=== PATIENT | male | born 1960 | race Caucasian/White ===

== ENCOUNTER 2016-05-23 13:34 | Observation (INO) | payer BC, OTHER ==
--- NOTE | 2016-05-23 14:04 | EKG REPORT ---
SEVERITY:- BORDERLINE ECG - SINUS RHYTHM NONSPECIFIC LATERAL T INVERSION. : Confirmed by: Juan Francisco Herr MD 23-May-2016 14:04:17
--- NOTE | 2016-05-23 14:35 | ER Document Report ---
ED Medical Screen (RME) - General Stated Complaint: CHEST PAIN Mode of Arrival: Ambulatory Information source: Patient, Relative - spouse Notes: She presents emergency department with complaints of left-sided chest hurting reports the pain comes and goes feels like a cramp. Reports has been coming and going since last week. Reports history of high blood pressure and he is a smoker. Patient reports father with history of congestive heart failure which he at the age of 59. He denies other symptoms such as fever vomiting nausea diarrhea. He denies the pain radiating anywhere. Patient reports this happened 2 years ago and he never followed up with cardiology Physical Exam - Vital signs Vitals: Temp Pulse Resp BP Pulse Ox 98.0 F 95 17 173/87 H 96 05/23/16 13:51 05/23/16 13:51 05/23/16 13:51 05/23/16 13:51 05/23/16 13:51 Course - Vital Signs Vital signs: Temp Pulse Resp BP Pulse Ox 98.0 F 95 17 173/87 H 96 05/23/16 13:51 05/23/16 13:51 05/23/16 13:51 05/23/16 13:51 05/23/16 13:51
[2016-05-23] MEDS ORDERED: ASPIRIN 81 MG TABLET, CHEWABLE PO ONE ×2 (14:36→16:55)
[2016-05-23 14:56] LABS: ABSOLUTE EOSINOPHILS # (AUTO) 0.2 10^3/uL (0.0-0.6); ABSOLUTE LYMPHOCYTES (AUTO) 2.1 10^3/uL (0.5-4.7); ABSOLUTE MONOCYTES (AUTO) 0.6 10^3/uL (0.1-1.4); ABSOLUTE NEUT (AUTO) 4.5 10^3/uL (1.7-8.2); BASOPHILS % (AUTO) 0.7 % (0-2); EOSINOPHILS % (AUTO) 2.1 % (0-6); HEMATOCRIT 43.5 % (37.9-51.0); HEMOGLOBIN 15.4 g/dL (13.5-17.0); HGB HCT DIFFERENCE 2.7; LYMPHOCYTES % (AUTO) 28.2 % (13-45); MEAN CORPUSCULAR HEMOGLOBIN 32.6 pg (27.0-33.4); MEAN CORPUSCULAR HGB CONC 35.3 g/dL (32.0-36.0); MEAN CORPUSCULAR VOLUME 92 fl (80-97); MONOCYTES % (AUTO) 7.9 % (3-13); RED BLOOD COUNT 4.71 10^6/uL (4.35-5.55); RED CELL DISTRIBUTION WIDTH 13.8 % (11.5-14.0); SEGMENTED NEUTROPHILS % (AUTO) 61.1 % (42-78); WHITE BLOOD COUNT 7.3 10^3/uL (4.0-10.5)
[2016-05-23 15:02] LABS: PROTHROMBIN TIME 12.4 SEC (11.4-15.4)
--- NOTE | 2016-05-23 15:24 | ER Document Report ---
ED General - General Chief Complaint: Chest Pain Stated Complaint: CHEST PAIN Time seen by provider: 15:20 Mode of Arrival: Ambulatory Information source: Patient Notes: 56-year-old male complains about left lower chest upper adult cramping which began after he turned to one side while walking about 11:00 this morning. He reports it lasted 6 minutes and then resolved. He reports no associated fever, chills, nausea, vomiting, or shortness of breath. He had no sensation of pain numbness weakness to extremities. He reports lower chest cramping was nonradiating. He reports he's had cramping sensation like this in the right lower abdomen in the past with turning to one side and had the impression that this was similar. Patient reports he had a different type of chest discomfort about 2 years ago and says it EKG that looked okay and relief of his discomfort with nitroglycerin but never had any other cardiac workup. He is asymptomatic now. He has no local physician Physical Exam: General: Alert, appears well. HEENT: Normocephalic. Atraumatic. PERRLA. Extraocular movements intact. Oropharynx clear. Neck: Supple. Non-tender. Respiratory: No respiratory distress. Clear and equal breath sounds bilaterally. Nontender to palpation Cardiovascular: Regular rate and rhythm. PMI not displaced Abdominal: Normal Inspection. Soft, non-tender. No distension. Normal Bowel Sounds. Back: Non-tender. No deformity or step off. 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 Normal Mood. Skin: Warm. Dry. Normal color. - Related Data Allergies/Adverse Reactions: No Known Allergies Allergy (Verified 05/23/16 15:29) Past Medical History - General Information source: Patient, Relative - spouse - Social History Smoking Status: Current Every Day Smoker Family History: Other - Father with congestive heart failure - Past Medical History Cardiac Medical History: Reports: Hx Hypertension Denies: Hx Congestive Heart Failure, Hx Coronary Artery Disease, Hx Heart Attack, Hx Peripheral Vascular Disease Neurological Medical History: Denies: Hx Cerebrovascular Accident Endocrine Medical History: Denies: Hx Diabetes Mellitus Type 1, Hx Diabetes Mellitus Type 2 Malignancy Medical History: Reports None GI Medical History: Reports: None Musculoskeltal Medical History: Reports None Psychiatric Medical History: Reports: None Review of Systems - Review of Systems Constitutional: denies: Chills, Fever EENT: denies: Ear pain, Throat pain Cardiovascular: See HPI. denies: Dyspnea, Syncope Respiratory: denies: Short of breath, Wheezing Gastrointestinal: denies: Abdominal pain, Diarrhea, Nausea, Vomiting, Blood in vomit, Black stools, Rectal bleeding Genitourinary: denies: Burning, Dysuria Musculoskeletal: denies: Back pain, Leg swelling, Ankle swelling Skin: denies: Rash Hematologic/Lymphatic: denies: Swollen glands Neurological/Psychological: denies: Weakness, Numbness Physical Exam - Vital signs Vitals: Temp Pulse Resp BP Pulse Ox 98.0 F 95 17 173/87 H 96 05/23/16 13:51 05/23/16 13:51 05/23/16 13:51 05/23/16 13:51 05/23/16 13:51 Course - Re-evaluation Re-evalutation: 05/23/16 17:15 Patient is remained asymptomatic during stay in emergency department. He has multiple risk factors for acute coronary syndrome and heart score for I believe the prudent admitted for repeat cardiac enzymes and stress testing in a. I discussed case with Dr. Robles hospitalist service and she will be coming to see the patient - Vital Signs Vital signs: Temp Pulse Resp BP Pulse Ox 98.0 F 95 15 173/87 H 94 05/23/16 13:51 05/23/16 13:51 05/23/16 15:26 05/23/16 13:51 05/23/16 15:26 - Laboratory Result Diagrams: 05/23/16 14:45 05/23/16 14:45 Laboratory results interpreted by me: 05/23/16 14:45 Calcium 10.5 H ALT 74 H - Diagnostic Test Radiology reviewed: Image reviewed, Reports reviewed - EKG Interpretation by Me Additional EKG results interpreted by me: 05/23/16 15:24 EKG reviewed by myself shows sinus rhythm at 92 changes Discharge - Discharge Clinical Impression: Chest pain Qualifiers: Chest pain type: unspecified Qualified Code(s): R07.9 - Chest pain, unspecified Hypertension Qualifiers: Hypertension type: essential hypertension Qualified Code(s): I10 - Essential ( primary) hypertension Condition: Fair Disposition: ADMITTED OBSERVATION Admitting Provider: Hospitalist Unit Admitted: Telemetry
[2016-05-23 15:32] LABS: ALANINE AMINOTRANSFERASE 74 U/L (21-72); ALBUMIN 4.7 g/dL (3.5-5.0); ALKALINE PHOSPHATASE 89 U/L (38-126); ANION GAP 10 (5-19); ASPARTATE AMINO TRANSFERASE 40 U/L (17-59); BILIRUBIN,DIRECT 0.2 mg/dL (0.0-0.4); BILIRUBIN,TOTAL 0.4 mg/dL (0.2-1.3); BLOOD UREA NITROGEN 13 mg/dL (7-20); CALCIUM 10.5 mg/dL (8.4-10.2); CARBON DIOXIDE 30 mmol/L (22-30); CHLORIDE 102 mmol/L (98-107); CREATINE KINASE 103 U/L (55-170); CREATININE RESULT 0.76 mg/dL (0.52-1.25); GLUCOSE 108 mg/dL (75-110); MAGNESIUM 1.8 mg/dL (1.6-2.3); POTASSIUM 4.2 mmol/L (3.6-5.0); SODIUM 142.3 mmol/L (137-145); TOTAL PROTEIN 7.6 g/dL (6.3-8.2)
[2016-05-23 15:44] LABS: CREATINE KINASE MB 1.33 ng/mL (<4.55)
[2016-05-23 15:51] LABS: TROPONIN I < 0.012 ng/mL
--- NOTE | 2016-05-23 18:11 | PDOC H&P ---
History of Present Illness Admission Date/PCP: 05/23/16 17:22 Patient complains of: chest pain History of Present Illness: STANLEY MORAN is a 56 year old male about left lower chest upper adult cramping which began after he turned to one side while walking about 11:00 this morning. He reports it lasted 6 minutes and then resolved. He reports no associated fever, chills, nausea, vomiting, or shortness of breath. He had no sensation of pain numbness weakness to extremities. He reports lower chest cramping was nonradiating. He reports he' s had cramping sensation like this in the right lower abdomen in the past with turning to one side and had the impression that this was similar. Patient reports he had a different type of chest discomfort about 2 years ago and says it EKG that looked okay and relief of his discomfort with nitroglycerin but never had any other cardiac workup. He is asymptomatic now. He has no local physician In the ED patient had normal EKG, normal cardiac enzymes A CTA of the chest was negative for PE He was subsequently increased subsequently admitted for observation overnight under hospitalist service to be ruled out Past Medical History Cardiac Medical History: Reports: Hyperlipidema, Hypertension Denies: Congestive Heart Failure, Coronary Artery Disease, Myocardial Infarction, Peripheral Vascular Disease Endocrine Medical History: Denies: Diabetes Mellitus Type 1, Diabetes Mellitus Type 2 Malignancy Medical History: Reports: None GI Medical History: Reports: None Musculoskeltal Medical History: Reports: None Psychiatric Medical History: Reports: None Past Surgical History Past Surgical History: Reports: Orthopedic Surgery - Jaw Social History Smoking Status: Current Every Day Smoker Cigarettes Packs Per Day: 15 Frequency of Alcohol Use: None Hx Recreational Drug Use: No - Advance Directive Resuscitation Status: Full Code Family History Family History: Other - Father with congestive heart failure Parental Family History Reviewed: Yes - father had CHF Children Family History Reviewed: Yes Sibling(s) Family History Reviewed.: Yes Medication/Allergy Allergies/Adverse Reactions: No Known Allergies Allergy (Verified 05/23/16 15:29) Review of Systems Constitutional: ABSENT: chills, fever(s), headache(s), weight gain, weight loss Eyes: ABSENT: visual disturbances Ears: ABSENT: hearing changes Cardiovascular: PRESENT: as per HPI, chest pain. ABSENT: dyspnea on exertion, edema, orthropnea, palpitations Respiratory: ABSENT: cough, hemoptysis Gastrointestinal: ABSENT: abdominal pain, constipation, diarrhea, hematemesis, hematochezia, nausea, vomiting Genitourinary: ABSENT: dysuria, hematuria Musculoskeletal: ABSENT: joint swelling Integumentary: ABSENT: rash, wounds Neurological: ABSENT: abnormal gait, abnormal speech, confusion, dizziness, focal weakness, syncope Psychiatric: ABSENT: anxiety, depression, homidical ideation, suicidal ideation Endocrine: ABSENT: cold intolerance, heat intolerance, polydipsia, polyuria Hematologic/Lymphatic: ABSENT: easy bleeding, easy bruising Physical Exam Vital Signs: Temp Pulse Resp BP Pulse Ox 98.0 F 95 15 168/90 H 96 05/23/16 13:51 05/23/16 13:51 05/23/16 17:01 05/23/16 17:01 05/23/16 17:01 General appearance: PRESENT: no acute distress, well-developed, well-nourished Head exam: PRESENT: atraumatic, normocephalic Eye exam: PRESENT: conjunctiva pink, EOMI, PERRLA. ABSENT: scleral icterus Ear exam: PRESENT: normal external ear exam Mouth exam: PRESENT: moist, tongue midline Neck exam: ABSENT: carotid bruit, JVD, lymphadenopathy, thyromegaly Respiratory exam: PRESENT: clear to auscultation [place]. ABSENT: rales, rhonchi, wheezes Cardiovascular exam: PRESENT: RRR. ABSENT: diastolic murmur, rubs, systolic murmur Pulses: PRESENT: normal dorsalis pedis pul Vascular exam: PRESENT: normal capillary refill GI/Abdominal exam: PRESENT: normal bowel sounds, soft. ABSENT: distended, guarding, mass, organolmegaly, rebound, tenderness Rectal exam: PRESENT: deferred Extremities exam: PRESENT: full ROM. ABSENT: calf tenderness, clubbing, pedal edema Neurological exam: PRESENT: alert, awake, oriented to person, oriented to place , oriented to time, oriented to situation, CN II-XII grossly intact. ABSENT: motor sensory deficit Psychiatric exam: PRESENT: appropriate affect, normal mood. ABSENT: homicidal ideation, suicidal ideation Skin exam: PRESENT: dry, intact, warm. ABSENT: cyanosis, rash Results Laboratory Results: 05/23/16 14:45 05/23/16 14:45 MCV 92 fl (80-97) 05/23/16 14:45 MCH 32.6 pg (27.0-33.4) 05/23/16 14:45 MCHC 35.3 g/dL (32.0-36.0) 05/23/16 14:45 RDW 13.8 % (11.5-14.0) 05/23/16 14:45 Seg Neutrophils % 61.1 % (42-78) 05/23/16 14:45 Lymphocytes % 28.2 % (13-45) 05/23/16 14:45 Monocytes % 7.9 % (3-13) 05/23/16 14:45 Eosinophils % 2.1 % (0-6) 05/23/16 14:45 Basophils % 0.7 % (0-2) 05/23/16 14:45 Absolute Neutrophils 4.5 10^3/uL (1.7-8.2) 05/23/16 14:45 Absolute Lymphocytes 2.1 10^3/uL (0.5-4.7) 05/23/16 14:45 Absolute Monocytes 0.6 10^3/uL (0.1-1.4) 05/23/16 14:45 Absolute Eosinophils 0.2 10^3/uL (0.0-0.6) 05/23/16 14:45 Absolute Basophils 0.0 10^3/uL (0.0-0.2) 05/23/16 14:45 Chloride 102 mmol/L (98-107) 05/23/16 14:45 Carbon Dioxide 30 mmol/L (22-30) 05/23/16 14:45 Anion Gap 10 (5-19) 05/23/16 14:45 Est GFR ( Amer) > 60 (>60) 05/23/16 14:45 Est GFR (Non-Af Amer) > 60 (>60) 05/23/16 14:45 Glucose 108 mg/dL (75-110) 05/23/16 14:45 Calcium 10.5 mg/dL (8.4-10.2) H 05/23/16 14:45 Magnesium 1.8 mg/dL (1.6-2.3) 05/23/16 14:45 Total Bilirubin 0.4 mg/dL (0.2-1.3) 05/23/16 14:45 AST 40 U/L (17-59) 05/23/16 14:45 ALT 74 U/L (21-72) H 05/23/16 14:45 Alkaline Phosphatase 89 U/L (38-126) 05/23/16 14:45 Total Protein 7.6 g/dL (6.3-8.2) 05/23/16 14:45 Albumin 4.7 g/dL (3.5-5.0) 05/23/16 14:45 Lipase 100.8 U/L (23-300) 05/23/16 14:45 05/23/16 05/23/16 14:45 14:45 Creatine Kinase 103 CK-MB (CK-2) 1.33 Troponin I < 0.012 EKG Comments: Normal sinus rhythm no acute changes Impressions: Chest X-Ray 05/23/16 14:36 IMPRESSION: Prominent left hilum. Consider chest CT with contrast. Chest/Abdomen CTA 05/23/16 15:18 IMPRESSION: 1. No hilar mass or adjacent infiltrate. 2. No overt suggestion of pulmonary embolus or aortic pathology. Assessment & Plan - Diagnosis (1) Chest pain Qualifiers: Chest pain type: unspecified Qualified Code(s): R07.9 - Chest pain, unspecified Is this a current diagnosis for this admission?: Yes (2) Hypertension Qualifiers: Hypertension type: essential hypertension Qualified Code(s): I10 - Essential (primary) hypertension - Time Time Spent with patient: We will keep the patient overnight for cardiac monitoring serial cardiac enzymes Repeat EKG in a.m. Lipid profile hemoglobin A1c in a.m. We will treat the patient with Lipitor and aspirin Time Spent: 50 to 70 Minutes
[2016-05-23] MEDS ORDERED: ENOXAPARIN SODIUM INJ 40 MG/0.4 ML DISP.SYRIN SUBCUT ONE (19:00)
--- NOTE | 2016-05-23 19:06 | EKG REPORT ---
SEVERITY:- NORMAL ECG - SINUS RHYTHM : Confirmed by: Juan Francisco Herr MD 23-May-2016 19:05:42
[2016-05-23] MEDS ORDERED: ATORVASTATIN CALCIUM 80 MG TABLET PO SCH (22:00)
[2016-05-24 06:28] LABS: CHOLESTEROL 323.07 mg/dL (0-200); Direct HDL 42 mg/dL (>40)
[2016-05-24 06:38] LABS: DIRECT LDL 180 mg/dL (<100)
[2016-05-24 06:42] LABS: TRIGLYCERIDES 582 mg/dL (<150)
[2016-05-24 07:58] VITALS: BP 115/77
[2016-05-24] MEDS ORDERED: ENOXAPARIN SODIUM INJ 40 MG/0.4 ML DISP.SYRIN SUBCUT SCH (08:00)
--- NOTE | 2016-05-24 08:31 | EKG REPORT ---
SEVERITY:- NORMAL ECG - SINUS RHYTHM : Confirmed by: Juan Francisco Herr MD 24-May-2016 08:30:04
[2016-05-24] MEDS ORDERED: ASPIRIN 325 MG TABLET, ENT COATED PO SCH (10:00)
--- NOTE | 2016-05-26 17:52 | PDOC DISCHARGE SUMMARY ---
General - Admit/Disc Date/PCP Admission Date/Primary Care Provider: 05/23/16 18:00 Discharge Date: 05/24/16 - Discharge Diagnosis (1) Chest pain Is this a current diagnosis for this admission?: YesSummary: patient was monitored did not have any cardiac arrhythmia troponins were normal EKF normal (2) Hypertension Is this a current diagnosis for this admission?: YesSummary: was controlled (3) Hyperlipidemia Is this a current diagnosis for this admission?: YesSummary: 05/24/16 06:02 Triglycerides 582 H Cholesterol 323.07 H LDL Cholesterol Direct 180 H VLDL Cholesterol UNABLE TO CALCULATE HDL Cholesterol 42 patient was dischaged on Crestor and Omega3 fatty acids (4) Elevated hemoglobin A1c Is this a current diagnosis for this admission?: YesSummary: 05/24/16 06:02 Hemoglobin A1c % 6.1 H Patient was instructed to follow a low carb diet and exercise regularly - Additional Information Resuscitation Status: Full Code Discharge Diet: Cardiac Discharge Activity: Activity As Tolerated Home Medications: Aspirin [Ecotrin 81 mg EC Tablet] 81 mg PO DAILY #30 tabec 05/24/16 [place]-3 Fatty Acids/Fish Oil [[place] 3 Fish Oil Softgel] 1 each PO BID #60 capsule. 05/24/16 Rosuvastatin Calcium [Crestor] 40 mg PO QHS #30 tablet 05/24/16 History of Present Illness Patient complains of: chest pain History of Present Illness: STANLEY MORAN is a 56 year old male presented to the ED with left lower chest pain , cramping in nature Pain began after he turned to one side while walking about 11:00 this morning. He reports it lasted 6 minutes and then resolved. He reports no associated fever, chills, nausea, vomiting, or shortness of breath. He had no sensation of pain numbness weakness to extremities. He reports lower chest cramping was nonradiating. He reports he's had cramping sensation like this in the right lower abdomen in the past with turning to one side and had the impression that this was similar. Patient reports he had a different type of chest discomfort about 2 years ago and says it EKG that looked okay and relief of his discomfort with nitroglycerin but never had any other cardiac workup. He is asymptomatic now. He has no local physician In the ED patient had normal EKG, normal cardiac enzymes A CTA of the chest was negative for PE He was subsequently increased subsequently admitted for observation overnight under hospitalist service to be ruled out Hospital Course Hospital Course: was asymptomatic Patient was referred to Cardiology for outpatient stress test Physical Exam Vital Signs: Temp Pulse Resp BP Pulse Ox 98.0 F 77 20 115/77 96 05/24/16 13:02 05/24/16 13:02 05/24/16 13:02 05/24/16 13:02 05/24/16 13:02 Intake & Output 05/25/16 05/26/16 05/27/16 00:59 00:59 00:59 Weight 97 kg General appearance: PRESENT: no acute distress, well-developed, well-nourished Head exam: PRESENT: atraumatic, normocephalic Eye exam: PRESENT: conjunctiva pink, EOMI, PERRLA. ABSENT: scleral icterus Ear exam: PRESENT: normal external ear exam Mouth exam: PRESENT: moist, tongue midline Neck exam: ABSENT: carotid bruit, JVD, lymphadenopathy, thyromegaly Respiratory exam: PRESENT: clear to auscultation [place]. ABSENT: rales, rhonchi, wheezes Cardiovascular exam: PRESENT: RRR. ABSENT: diastolic murmur, rubs, systolic murmur Pulses: PRESENT: normal dorsalis pedis pul Vascular exam: PRESENT: normal capillary refill GI/Abdominal exam: PRESENT: normal bowel sounds, soft. ABSENT: distended, guarding, mass, organolmegaly, rebound, tenderness Rectal exam: PRESENT: deferred Extremities exam: PRESENT: full ROM. ABSENT: calf tenderness, clubbing, pedal edema Neurological exam: PRESENT: alert, awake, oriented to person, oriented to place , oriented to time, oriented to situation, CN II-XII grossly intact. ABSENT: motor sensory deficit Psychiatric exam: PRESENT: appropriate affect, normal mood. ABSENT: homicidal ideation, suicidal ideation Skin exam: PRESENT: dry, intact, warm. ABSENT: cyanosis, rash Results Laboratory Results: 05/23/16 05/24/16 05/24/16 20:44 02:38 08:44 Troponin I < 0.012 < 0.012 < 0.012 05/23/16 14:45 05/23/16 14:45 MCV 92 fl (80-97) 05/23/16 14:45 MCH 32.6 pg (27.0-33.4) 05/23/16 14:45 MCHC 35.3 g/dL (32.0-36.0) 05/23/16 14:45 RDW 13.8 % (11.5-14.0) 05/23/16 14:45 Seg Neutrophils % 61.1 % (42-78) 05/23/16 14:45 Lymphocytes % 28.2 % (13-45) 05/23/16 14:45 Monocytes % 7.9 % (3-13) 05/23/16 14:45 Eosinophils % 2.1 % (0-6) 05/23/16 14:45 Basophils % 0.7 % (0-2) 05/23/16 14:45 Absolute Neutrophils 4.5 10^3/uL (1.7-8.2) 05/23/16 14:45 Absolute Lymphocytes 2.1 10^3/uL (0.5-4.7) 05/23/16 14:45 Absolute Monocytes 0.6 10^3/uL (0.1-1.4) 05/23/16 14:45 Absolute Eosinophils 0.2 10^3/uL (0.0-0.6) 05/23/16 14:45 Absolute Basophils 0.0 10^3/uL (0.0-0.2) 05/23/16 14:45 Chloride 102 mmol/L (98-107) 05/23/16 14:45 Carbon Dioxide 30 mmol/L (22-30) 05/23/16 14:45 Anion Gap 10 (5-19) 05/23/16 14:45 Est GFR ( Amer) > 60 (>60) 05/23/16 14:45 Est GFR (Non-Af Amer) > 60 (>60) 05/23/16 14:45 Glucose 108 mg/dL (75-110) 05/23/16 14:45 Calcium 10.5 mg/dL (8.4-10.2) H 05/23/16 14:45 Magnesium 1.8 mg/dL (1.6-2.3) 05/24/16 06:02 Total Bilirubin 0.4 mg/dL (0.2-1.3) 05/23/16 14:45 AST 40 U/L (17-59) 05/23/16 14:45 ALT 74 U/L (21-72) H 05/23/16 14:45 Alkaline Phosphatase 89 U/L (38-126) 05/23/16 14:45 Total Protein 7.6 g/dL (6.3-8.2) 05/23/16 14:45 Albumin 4.7 g/dL (3.5-5.0) 05/23/16 14:45 Triglycerides 582 mg/dL (<150) H 05/24/16 06:02 Cholesterol 323.07 mg/dL (0-200) H 05/24/16 06:02 LDL Cholesterol Direct 180 mg/dL (<100) H 05/24/16 06:02 VLDL Cholesterol UNABLE TO CALCULATE 05/24/16 06:02 HDL Cholesterol 42 mg/dL (>40) 05/24/16 06:02 Lipase 100.8 U/L (23-300) 05/23/16 14:45 TSH 2.88 uIU/mL (0.47-4.68) 05/24/16 06:02 05/23/16 05/23/16 05/23/16 14:45 14:45 20:44 Creatine Kinase 103 CK-MB (CK-2) 1.33 Troponin I < 0.012 < 0.012 05/24/16 05/24/16 02:38 08:44 Creatine Kinase CK-MB (CK-2) Troponin I < 0.012 < 0.012 EKG Comments: SINUS RHYTHM [id number] STANLEY MORAN 24-May-2016 05:11:51 : 1960 56 Years Male Race: White Dept: Inpatients Room: 436 Oper: ST HR 79 ID [id number] QRSD 86 QT 384 QTc 441 -- AXIS -- P 41 QRS 58 T 76 Requested By: BRITTANI SAWYER Reason: CP Order #: [id number] Account Impressions: Chest X-Ray 05/23/16 14:36 IMPRESSION: Prominent left hilum. Consider chest CT with contrast. Chest/Abdomen CTA 05/23/16 15:18 IMPRESSION: 1. No hilar mass or adjacent infiltrate. 2. No overt suggestion of pulmonary embolus or aortic pathology. Plan Discharge Plan: discharged home on lowfat diet Time Spent: Less than 30 Minutes
== END 2016-05-24 15:19 | disposition home or self-care (01) ==
LOC: ER 13:34 → UNDOADMOB 17:22 → EH 17:22 → 4S 21:10
PROVIDERS: ADMIT Family Medicine; ATTEND Family Medicine
DX: R07.9 Chest pain, unspecified (principal); I10 Essential (primary) hypertension; E78.5 Hyperlipidemia, unspecified; R73.09 Other abnormal glucose; F17.210 Nicotine dependence, cigarettes, uncomplicated; Z79.82 Long term (current) use of aspirin; Z82.49 Family history of ischemic heart disease and other diseases of the circulatory system
CPT/HCPCS: 93005 ×2; 99285; 36415 ×2; 82553; 82550; 83690; 83735 ×2; 84443; 85025; 85610; 80053; 84484 ×2; 83036; 80061; 71020; 71275; 93010 ×2; G0378 ×3; J1650 ×2

== ENCOUNTER 2018-11-06 11:49 | Emergency (ER) | payer BC, OTHER ==
--- NOTE | 2018-11-06 12:08 | ER Document Report ---
ED Medical Screen (RME) - General Chief Complaint: Fall Stated Complaint: FALL/SHOULDER INJURY Time Seen by Provider: 11/06/18 12:02 Mode of Arrival: Ambulatory Information source: Patient Notes: Patient presents emergency department with complaints of left shoulder pain. 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 Now experiencing shoulder pain. Denies hitting his head. Reports he had a hard hat on. Complains of pain with any movement or touch. H as history of high blood pressure denies history of injury to the shoulder. Declines pain medication at this time reports he would like something if we mess with his shoulder. I have greeted and performed a rapid initial assessment of this patient. A comprehensive ED assessment and evaluation of the patient, analysis of test results and completion of the medical decision making process will be conducted by additional ED providers. Dictation of this chart was performed using voice recognition software; therefore, there may be some unintended grammatical errors. TRAVEL OUTSIDE OF THE [place] IN LAST 30 DAYS: No - Related Data Allergies/Adverse Reactions: No Known Allergies Allergy (Verified 11/06/18 12:03) Past Medical History - Past Medical History Cardiac Medical History: Reports: Hx Hypercholesterolemia, Hx Hypertension Denies: Hx Congestive Heart Failure, Hx Coronary Artery Disease, Hx Heart Attack, Hx Peripheral Vascular Disease Neurological Medical History: Denies: Hx Cerebrovascular Accident Endocrine Medical History: Denies: Hx Diabetes Mellitus Type 1, Hx Diabetes Mellitus Type 2 Past Surgical History: Reports: Hx Orthopedic Surgery - Jaw Physical Exam - Vital signs Vitals: Temp Pulse Resp BP Pulse Ox 98.0 F 111 H 16 175/79 H 93 11/06/18 11:52 11/06/18 11:52 11/06/18 11:52 11/06/18 11:52 11/06/18 11:52 Course - Vital Signs Vital signs: Temp Pulse Resp BP Pulse Ox 98.0 F 111 H 16 175/79 H 93 11/06/18 11:52 11/06/18 11:52 11/06/18 11:52 11/06/18 11:52 11/06/18 11:52
[2018-11-06] MEDS ORDERED: HYDROMORPHONE HCL INJ/PF 2 MG/ML AMPULE IV ONE (12:43)
[2018-11-06] MEDS ORDERED: FENTANYL CITRATE INJ/PF 100 MCG/2 ML AMPUL IV ONE (12:43)
[2018-11-06] MEDS ORDERED: ONDANSETRON HCL INJ/PF 4 MG/2 ML SDV IV ONE (12:43)
--- NOTE | 2018-11-06 12:45 | ER Document Report ---
ED General - General Chief Complaint: Shoulder Pain Stated Complaint: FALL/SHOULDER INJURY Time Seen by Provider: 11/06/18 12:02 Mode of Arrival: Ambulatory TRAVEL OUTSIDE OF THE [place] IN LAST 30 DAYS: No - HPI Notes: 58-year-old male presents to ED for evaluation of his left shoulder and humerus after he fell into a wall after walking down steps, denies any head trauma or change in level consciousness. Denies any prior injury to his left shoulder or humerus. Has not tried any [id number] medications. Pain is 4 out of 5, sharp stabbing constant. Denies fevers, chills, chest pain,palpitations, shortness of breath, dyspnea, nausea, vomiting, diarrhea, abdominal pain, hematuria, speech changes, LH, dizziness, syncope, headaches, wheezing, ST, URI, neck pain, weakness, bowel or bladder dysfunction, saddle anesthesia, numbness or tingling in bilateral upper or lower extremities equally, muscle paralysis, weakness in bilateral upper or lower extremities equally or rash. - Related Data Allergies/Adverse Reactions: No Known Allergies Allergy (Verified 11/06/18 12:03) Past Medical History - General Information source: Patient - Social History Smoking Status: Never Smoker Chew tobacco use (# tins/day): No Frequency of alcohol use: None Drug Abuse: None Family History: Other - Father with congestive heart failure Patient has suicidal ideation: No Patient has homicidal ideation: No - Past Medical History Cardiac Medical History: Reports: Hx Hypercholesterolemia, Hx Hypertension Denies: Hx Congestive Heart Failure, Hx Coronary Artery Disease, Hx Heart Attack, Hx Peripheral Vascular Disease Neurological Medical History: Denies: Hx Cerebrovascular Accident Endocrine Medical History: Denies: Hx Diabetes Mellitus Type 1, Hx Diabetes Mellitus Type 2 Past Surgical History: Reports: Hx Orthopedic Surgery - Jaw Review of Systems - Review of Systems Constitutional: No symptoms reported EENT: No symptoms reported Cardiovascular: No symptoms reported Respiratory: No symptoms reported Gastrointestinal: No symptoms reported Genitourinary: No symptoms reported Male Genitourinary: No symptoms reported Musculoskeletal: See HPI Skin: No symptoms reported Hematologic/Lymphatic: No symptoms reported Neurological/Psychological: No symptoms reported Physical Exam - Vital signs Vitals: Temp Pulse Resp BP Pulse Ox 98.0 F 111 H 16 175/79 H 93 11/06/18 11:52 11/06/18 11:52 11/06/18 11:52 11/06/18 11:52 11/06/18 11:52 - Notes Notes: PHYSICAL EXAMINATION: GENERAL: Well-appearing, well-nourished and in no acute distress. HEAD: Atraumatic, normocephalic. EYES: Pupils equal round and reactive to light, extraocular movements intact, sclera anicteric, conjunctiva are normal. ENT: Nares patent, oropharynx clear without exudates. Moist mucous membranes. NECK: Normal range of motion, supple without lymphadenopathy LUNGS: Breath sounds clear to auscultation bilaterally and equal. No wheezes r ales or rhonchi. HEART: Regular rate and rhythm without murmurs ABDOMEN: Soft, nontender, nondistended abdomen. No guarding, no rebound. No masses appreciated. Musculoskeletal: Normal range of motion, no pitting or edema. No cyanosis. left shoulder with pain with any attempt of abduction, adduction, extension and flexion. Left elbow pain with any attempt of supination, pronation, extension, flexion. Fractionation Plant Supervisor + 2 BUE equally. DTR +2 in BUE equally. No vascular compromise. Neck with full APROM, no cervical spinal tenderness. No tenderness over clavicles or step off noted bilaterally. Strength 5 out of 5 in bilateral upper extremities equally. cap refill < 3 seconds in BUE. NEUROLOGICAL: Cranial nerves grossly intact. Normal speech, normal gait. Normal sensory, motor exams PSYCH: Normal mood, normal affect. SKIN: Warm, Dry, normal turgor, no rashes or lesions noted. Course - Re-evaluation Re-evalutation: 11/06/18 13:[address] Adrian Overton, applied behavior science specialist on-call at 1315 regarding comminuted displaced fracture of the proximal humerus, he was able to view the image on PACS, states that patient does not require surgery today, to place him in a left coaptation splint and for him to call his office, will re-x-ray next week and see if surgery is required at that time. No focal neurological deficits on examination, cms intact throughout duration of stay. pain under control with 50 mcg of fentanyl and 1 mg of Dilaudid IVP. discussed with patient in depth compartment syndrome, signs and symptoms of neurovascular compromise. Discussed with patient that he cannot drive, drink or operate heavy machinery while taking oral narcotic medications that can cause sedation or impairment of cognitive function. will be driving patient home. All questions and concerns were answered by this provider. Consent by patient given to place left coaptation splint. cms intact, sensory motor function intact in bilateral upper extremities prior to splint application fiberglass splint placed without incident. cms intact 20 minutes after splint application. Splint is in good alignment. Bilateral upper extremities with motor and sensory function intact 20 minutes after application. Pt stated that splint felt comfortable. Discussed signs and symptoms of arm syndrome, when to return to the emergency room. after performing a Medical Screening Examination, I estimate there is LOW risk for OPEN FRACTURE, COMPARTMENT SYNDROME, DEEP VENOUS THROMBOSIS, ACUTE TENDON RUPTURE, or NEUROVASCULAR INJURY thus I consider the discharge disposition reasonable. I have reevaluated this patient multiple times and no significant life threatening changes are noted. The patient and I have discussed the diagnosis and risks, and we agree with discharging home to closely follow-up with their primary doctor or the referral orthopedist with the understanding that symptoms and presentations can change. We also discussed returning to the Emergency Department immediately if new or worsening symptoms occur. We have discussed the symptoms which are most concerning (e.g., changing or worsening pain, numbness, weakness) that necessitate immediate return - Vital Signs Vital signs: Temp Pulse Resp BP Pulse Ox 98.0 F 111 H 16 175/79 H 93 11/06/18 11:52 11/06/18 11:52 11/06/18 11:52 11/06/18 11:52 11/06/18 11:52 Discharge - Discharge Clinical Impression: Left humeral fracture Qualifiers: Encounter type: initial encounter Humerus Location: proximal Fracture type: closed Fracture alignment: displaced Condition: Stable Disposition: HOME, SELF-CARE Instructions: Compartment Syndrome Cautions ([facility]), Splint Pending Casting ([facility]), Splint Precautions ([facility]), Temporary Splint ([facility]), Oral Narcotic Medication ([facility]) Additional Instructions: Fracture Proximal Humerus There is a fracture at the upper end of the humerus, near the shoulder joint. Your physician has assessed the fracture's severity and has determined that it will heal well without surgery or "setting." The typical shoulder fracture doesn't need a cast. It's best treated by binding the arm down with a special sling. Ice packs are used to reduce pain and swelling. After early healing has occurred, [id number] exercises are prescribed for the shoulder. Complete healing may take three to six weeks, depending on the age of the patient and the severity of the fracture. Call the doctor or return at once if the arm becomes numb, or if pain or swelling become severe. Do not get fiberglass well as it can cause change in molding. Call applied behavior science specialist to set up appointment for next week either today or tomorrow. Do not drive, drink alcohol or operate heavy machinery while taking oral narcotic medications can cause sedation and impairment in cognitive function. Discussed compartment syndrome. Prescriptions: Hydrocodone/Acetaminophen [[place] 5-325 mg Tablet] 1 tab PO Q4HP PRN #12 tablet PRN Reason: Forms: Return to Work Referrals: CROW OVERTON MD [ACTIVE PROVISIONAL STAFF] - Follow up as needed DELTA ARANDA JR, DO [ACTIVE PROVISIONAL STAFF] - Follow up as needed CARON STALLWORTH MD [ACTIVE STAFF] - Follow up as needed
--- NOTE | 2018-11-06 12:49 | RADIOLOGY REPORT (SQ) ---
EXAM DESCRIPTION: SHOULDER LEFT 2 OR MORE VIEWS COMPLETED DATE/TIME: 11/06/2018 12:23 pm REASON FOR STUDY: pain, ? dislocation COMPARISON: None. NUMBER OF VIEWS: Two views. TECHNIQUE: Frontal and lateral images acquired of the left shoulder. LIMITATIONS: None. FINDINGS: MINERALIZATION: Normal. BONES: Comminuted fracture of proximal humerus. The distal extent is not visualized. Proximal exten t involves the greater tuberosity. JOINTS: No dislocation. VISUALIZED LUNGS AND RIBS: No pneumothorax. No rib fracture. SOFT TISSUES: No radiopaque foreign body. OTHER: No other significant finding. IMPRESSION: COMMINUTED FRACTURE OF THE PROXIMAL HUMERUS, NOT COMPLETELY IMAGED. NO DISLOCATION IN T HE GLENOHUMERAL JOINT. TECHNICAL DOCUMENTATION: JOB ID: [id number] [email or web address]- All Rights Reserved Reading location - IP/workstation name: [email or web address]
--- NOTE | 2018-11-06 12:56 | RADIOLOGY REPORT (SQ) ---
EXAM DESCRIPTION: HUMERUS LEFT COMPLETED DATE/TIME: 11/06/2018 12:46 pm REASON FOR STUDY: Injury fx COMPARISON: None. NUMBER OF VIEWS: Two views. TECHNIQUE: Two radiographic images were acquired of the left humerus to include elbow and shoulder i n at least one projection. LIMITATIONS: None. FINDINGS: MINERALIZATION: Normal. BONES: Comminuted displaced fracture of the proximal humerus extending from the greater tuberosity to the midshaft. No worrisome bone lesions. SOFT TISSUES: No obvious swelling or foreign body. OTHER: No other significant finding. IMPRESSION: COMMINUTED DISPLACED FRACTURE OF THE PROXIMAL HUMERUS DESCRIBED. TECHNICAL DOCUMENTATION: JOB ID: [id number] [employer]- All Rights Reserved Reading location - IP/workstation name: [email or web address]
[2018-11-06] MEDS ORDERED: HYDROCODONE/ACETAMINOPHEN 5-325 MG (6 TAB/ER DISP) PO PRN (13:49)
[2018-11-06 15:29] VITALS: BP 132/76
== END 2018-11-06 15:28 | disposition home or self-care (01) ==
LOC: ER 11:49
DX: S42.292A Other displaced fracture of upper end of left humerus, initial encounter for closed fracture (principal); W22.01XA Walked into wall, initial encounter; I10 Essential (primary) hypertension
CPT/HCPCS: 99283; 96374; 96375; 73060; 73030; J3010; J1170; J2405

== ENCOUNTER → 2018-11-07 | Outpatient (CLI) | payer OTHER ==
--- NOTE | 2018-11-07 12:51 | RADIOLOGY REPORT (SQ) ---
EXAM DESCRIPTION: CT LT UPPER EXTREMITY WITHOUT COMPLETED DATE/TIME: 11/07/2018 12:10 pm REASON FOR STUDY: UNSP FRACTURE OF SHAFT OF HUMERUS, LEFT ARM, INIT S42.302A UNSP FRACTURE OF SHAFT OF HUMERUS, LEFT ARM, INIT COMPARISON: Left humerus two views 11/06/2018 Left shoulder three views 11/06/2018 TECHNIQUE: Axial imaging performed through the left humerus andshoulder with reformatted oblique cor onal and oblique sagittal imaging windowed for bone and soft tissues. All CT scanners at this facility use dose modulation, iterative reconstruction, and/or weight based d osing when appropriate to reduce radiation dose to as low as reasonably achievable (ALARA). [facility]: Dose Right [facility]: CareDose [facility]: Dose Right [facility]: Teradose 4D [facility]: Smart Vivolux RADIATION DOSE: CT Rad equipment meets quality standard of care and radiation dose reduction techniq ues were employed. CTDIvol: 26.5 mGy. DLP: 976 mGy-cm. mGy. LIMITATIONS: None. FINDINGS: Distal clavicle, AC joints, acromion and scapula visualized in the field of view are intac t. Right upper ribs intact. Hairline acute comminuted fracture through the left humeral head greater tuberosity without displacem ent of the greater tuberosity fragment. This is best shown on sagittal images 32-39, and axial image s 15 through 25. There is also an acute spiral fracture of the mid 3rd left humeral diaphysis with butterfly fragments present. Minimal foreshortening and angulation at the fracture site, best shown on coronal reconstr uction images 33-42. There is normal alignment at the glenohumeral and acromioclavicular joints. Soft tissue swelling in the mid left upper arm. IMPRESSION: Hairline acute comminuted fracture through the left humeral head greater tuberosity with out displacement of the greater tuberosity fragment Spiral acute fracture mid 3rd left humeral diaphysis with butterfly fragment present. Minimal foresh ortening and angulation at the fracture site TECHNICAL DOCUMENTATION: JOB ID: [id number] Quality ID # [id number]: Final reports with documentation of one or more dose reduction techniques (e.g., Au tomated exposure control, adjustment of the mA and/or kV according to patient size, use of iterative reconstruction technique) 2010 [employer]- All Rights Reserved Reading location - IP/workstation name: [email or web address]
== END ==
LOC: RAD 11:28
PROVIDERS: ATTEND Orthopaedic Surgery
DX: S42.252A Displaced fracture of greater tuberosity of left humerus, initial encounter for closed fracture (principal); X58.XXXA Exposure to other specified factors, initial encounter